=== PATIENT | male | born 1960 | race Caucasian/White ===

== ENCOUNTER 2021-07-03 00:32 | Emergency (ER) | payer MEDICAID, OTHER ==
[~2021-07-03] VITALS: Ht 180.3 cm; Wt 79.4 kg
[2021-07-03 00:56] LABS: HEMATOCRIT 40.8 % (36.7-47.1); MEAN CORPUSCULAR HEMOGLOBIN 29.6 uug (23.8-33.4); MEAN CORPUSCULAR VOLUME 87.3 fL (73.0-96.2); PLATELET COUNT (AUTO) 394 K/uL (152-348)
[2021-07-03 01:12] LABS: CREATININE 0.9 mg/dL (0.6-1.3); POTASSIUM 4.3 mmol/L (3.5-5.1)
--- NOTE | 2021-07-03 02:15 | NUR ---
Called [facility] for ambulance transport back to [facility]a 10-15 minutes
[2021-07-03] MEDS ORDERED: POLY17PO4 PO (02:16)
--- NOTE | 2021-07-03 02:46 | NUR ---
[facility] 305 transfered pt back to [facility] in stable condition
[2021-07-03 02:47] VITALS: BP 100/68
== END 2021-07-03 02:47 ==
LOC: ER 01:13
DX: K56.41 Fecal impaction (principal); D75.839 Thrombocytosis, unspecified; D72.829 Elevated white blood cell count, unspecified; G82.20 Paraplegia, unspecified; T14.8XXS Other injury of unspecified body region, sequela; X58.XXXS Exposure to other specified factors, sequela
CPT/HCPCS: 36415; 74018; 85025; A4663